=== PATIENT | male | born 1970 | race Caucasian/White ===

== ENCOUNTER → 2021-05-01 | Outpatient (CLI) | payer BC ==
--- NOTE | 2021-05-02 09:42 | XR ---
EXAMINATION TYPE: XR foot complete LT DATE OF EXAM: 05/01/2021 CLINICAL HISTORY: Pain for one month. History of surgery 10 years ago. TECHNIQUE: Frontal, lateral, and oblique images of the left foot are obtained. COMPARISON: None FINDINGS: There is a large fixating staple along the dorsal proximal metaphysis first metatarsal. The re is healed fracture deformity of the distal fifth metatarsal distal diaphysis level present. Flexio n in the toes is seen. There are 2 fixating devices in the lateral aspect of the calcaneus. No acute fracture or dislocation is seen. Joint spaces fairly well maintained. Overlying soft tissue is unrema rkable. IMPRESSION: As above.
== END | disposition home or self-care (01) ==
LOC: RADXRYALE 15:55
PROVIDERS: ATTEND Physician Assistant
DX: M79.672 Pain in left foot (principal)

== ENCOUNTER → 2022-12-01 | Outpatient (CLI) | payer OTHER ==
--- NOTE | 2022-12-01 12:39 | XR ---
EXAMINATION TYPE: XR lumbosacral spine min 4V DATE OF EXAM: 12/01/2022 12:29 PM INDICATION: Patient age:Male; 52 years old; Reason for study: [id number] LBP; [facility]. COMPARISON: None TECHNIQUE: Frontal, lateral , bilateral oblique and coned in L5-S1 lateral views of the spine. FINDINGS: There are 5 lumbar type vertebral bodies identified. No evidence of any acute osseous patho logy. No evidence of loss of vertebral body height is seen. Mild dextroscoliotic curvature. Slight g rade 1 anterolisthesis of L5 on S1. Bilateral pars defects at this level. Degenerative disc disease a t L5-S1 with disc space narrowing, endplate sclerosis, and anterior osteophytosis. Multilevel facet a rthropathy of the lower lumbar spine most pronounced at L5-S1. IMPRESSION: 1. No acute process. 2. Grade 1 anterolisthesis of L5 on S1 with bilateral pars defects. 3. Mild degenerative disc disease most pronounced at L5-S1.
== END | disposition home or self-care (01) ==
LOC: RADXRYALE 12:05
PROVIDERS: ATTEND Physician Assistant
DX: M43.17 Spondylolisthesis, lumbosacral region (principal); M51.37 Other intervertebral disc degeneration, lumbosacral region
CPT/HCPCS: 72110

== ENCOUNTER 2024-03-29 09:02 | Day surgery (SDC) | payer OTHER ==
[2024-03-24 17:33] VITALS: BMI 33.6
[~2024-03-29 09:02] MED LIST: LACTATED RINGERS 1,000 ML IV SCH; LIDOCAINE 1% (10MG/ML) FOR IV START INTRADERMA PRN; ONDANSETRON 4 MG/2 ML VIAL IVP PRN
[2024-03-29 10:03] VITALS: TEMP 99.1
[2024-03-29] MEDS: IV FLUID CONTINUATION 1,000 ML IV ONE (10:15)
[2024-03-29] MEDS ORDERED: PROPOFOL 10 MG/ML 20 ML VIAL IV ONE (10:34)
--- NOTE | 2024-03-29 10:55 | P.PCN ---
Date of Procedure: 03/29/24 Procedure(s) Performed: BRIEF HISTORY: Patient is a 53-year-old pleasant white male scheduled for an elective colonoscopy as a part of screening for colon cancer. PROCEDURE PERFORMED: Colonoscopy with biopsy. PREOPERATIVE DIAGNOSIS: Screening for colon cancer. IV sedation per Anesthesia. PROCEDURE: After informed consent was obtained, the patient, was brought into the endoscopy unit. IV sedation was administered by Anesthesia under continuous monitoring. Digital rectal examination was normal. Initially the Olympus CF-160 flexible video colonoscope was then inserted in the rectum, gradually advanced into the cecum without any difficulty. Careful examination was performed as the scope was gradually being withdrawn. Ileocecal valve and the appendiceal orifice were visualized and appeared normal. Prep was excellent. Mucosa of the cecum, appeared normal. In the ascending colon there was a 3 mm polyp that was removed by cold biopsy. Rest of the hide no ascending colon, transverse colon, appeared normal. The descending colon there was a 3 mm polyp was removed by cold biopsy. Rest of the descending colon, sigmoid colon, and rectum appeared normal. Retroflexion was performed in the rectum and no lesions were seen. The patient tolerated the procedure well. IMPRESSION: 3 mm ascending colon polyp status post cold biopsy 5 mm descending colon polyp status post cold biopsy RECOMMENDATIONS: Findings of this examination were discussed with the patient as well as his family. He was advised to follow-up with the biopsy results. If the biopsy reveals adenoma, he can have repeat colonoscopy in 5 years.
[2024-03-29 11:01] VITALS: RESP 18
[2024-03-29 11:30] VITALS: BP 126/79; PULSE 76
== END 2024-03-29 11:55 | disposition home or self-care (01) ==
LOC: ORWHC2ENDO 09:02
PROVIDERS: ATTEND Internal Medicine Gastroenterology
CPT/HCPCS: 45380; 88305